=== PATIENT | male | born 1975 | race Caucasian/White ===

== ENCOUNTER 2021-04-13 09:30 | Emergency (ER) | payer OTHER ==
[~2021-04-13] VITALS: Ht 182.9 cm; Wt 136.1 kg
[2021-04-13 09:51] VITALS: BP 131/86
[2021-04-13 10:32] LABS: EOSINOPHILS % (AUTO) 1.3 % (0.0-8.0); HEMATOCRIT 37.7 % (42-54); LYMPHOCYTES % (AUTO) 19.8 % (21.0-51.0); MEAN CORPUSCULAR HEMOGLOBIN 29.7 pg (27.0-33.0); MEAN CORPUSCULAR HGB CONC 34.2 g/dL (32.0-36.0); MEAN CORPUSCULAR VOLUME 86.7 fL (79-99); MONOCYTES % (AUTO) 5.5 % (3.0-13.0); PLATELET COUNT (AUTO) 238 K/uL (130-400); RED BLOOD CELL COUNT(AUTO) 4.35 MIL/uL (4.50-6.20); RED CELL DISTRIBUTION WIDTH 12.1 % (11.0-15.5); WHITE BLOOD COUNT (AUTO) 8.2 K/uL (4.8-10.8)
[2021-04-13] MEDS ORDERED: ONDANSETRON 4MG INJ IVP STA (10:36)
[2021-04-13] MEDS ORDERED: MORPHINE 4 MG SYG IV STA (10:36)
[2021-04-13 10:39] LABS: APPEARANCE,URINE Clear (CLEAR); BILIRUBIN,URINE Negative (NEGATIVE); COLOR,URINE Yellow (YELLOW); GLUCOSE, URINE (UA) >=1000 mg/dL (NEGATIVE); KETONES,URINE Negative (NEGATIVE); LEUKOCYTE ESTERASE ,URINE Negative (NEGATIVE); NITRATE,URINE Negative (NEGATIVE); OCCULT BLOOD,URINE Negative (NEGATIVE); PH,URINE 5.5 (5.0-8.0); PROTEIN,URINE Negative (NEGATIVE); UROBILINOGEN,URINE 0.2 mg/dL (0.2-1.0)
[2021-04-13 10:45] LABS: INR 0.94 (0.85-1.15); PROTHROMBIN TIME 10.3 SEC (9.6-11.6)
[2021-04-13] MEDS ORDERED: ONDANSETRON 4MG INJ ONE (10:45)
[2021-04-13 10:46] LABS: CREATININE 0.9 mg/dL (0.5-1.5); PARTIAL THROMBOPLASTIN TIME 24.6 SEC (26.3-35.5); POTASSIUM 3.9 mmol/L (3.5-5.1)
[2021-04-13] MEDS ORDERED: MORPHINE 4 MG SYG ONE (10:46)
[2021-04-13 10:50] LABS: ALBUMIN 3.8 g/dL (3.5-5.0); BILIRUBIN,TOTAL 0.6 mg/dL (0.2-1.0); TOTAL PROTEIN, SERUM 7.2 g/dL (6.0-8.3)
[2021-04-13] MEDS ORDERED: PRED20TA3 PO (10:55)
[2021-04-13] MEDS ORDERED: ACET1TAB25 PO (10:55)
[2021-04-13 11:01] LABS: BACTERIA,URINE Rare /HPF (None Seen); RBC,URINE None Seen /HPF (0-1); SQUAMOUS EPITHELIAL CELL,UR Rare /HPF (0-2); WBC,URINE None Seen /HPF (0-1)
[2021-04-13 11:02] LABS: B-TYPE NATRIURETIC PEPTIDE 9 pg/mL (0-100)
[2021-04-13 11:13] VITALS: BP 154/83
== END 2021-04-13 11:45 | disposition home or self-care (01) ==
LOC: EEVIPCON 09:30 → EDH 09:30
DX: G51.0 Bell's palsy (principal); I10 Essential (primary) hypertension; E11.9 Type 2 diabetes mellitus without complications; Z79.899 Other long term (current) drug therapy
CPT/HCPCS: 36415; 70450; 71045; 80053; 81001; 82550; 83880; 84484; 85025; 85610; 85730; 96374; 96375; 99285; J2270; J2405

== ENCOUNTER → 2023-07-19 | Emergency (ER) | payer BC, OTHER ==
[~2023-07-19] VITALS: Ht 182.9 cm; Wt 136.1 kg
[~2023-07-19] MED LIST: ACET-2079 PO; DEXAMETHASONE SOD PHOSPHATE 4 MG/ML 1ML VIAL IM ONE; DEXAMETHASONE SOD PHOSPHATE 4 MG/ML 1ML VIAL ONE; DIAZEPAM 5 MG TABLET PO ONE; HYDROCODONE/ACETAMINOPHEN 10/325 MG TAB PO ONE; KETOROLAC 60 MG VIAL (30MG/ML) IM ONE; METH-811 PO; PRED20TA3 PO; TIZANIDINE HCL 2 MG TABLET PO SCH
[2023-07-19 09:56] LABS: APPEARANCE,URINE CLEAR (CLEAR); BILIRUBIN,URINE NEGATIVE (NEGATIVE); GLUCOSE, URINE (UA) >=1000 mg/dL (NEGATIVE); KETONES,URINE NEGATIVE (NEGATIVE); LEUKOCYTE ESTERASE ,URINE NEGATIVE Leu/uL (NEGATIVE); NITRATE,URINE NEGATIVE (NEGATIVE); OCCULT BLOOD,URINE NEGATIVE (NEGATIVE); PROTEIN,URINE NEGATIVE (NEGATIVE); UROBILINOGEN,URINE 0.2 mg/dL (0.2-1.0)
[2023-07-19 09:59] LABS: ADD UA MICROSCOPIC YES; COLOR,URINE STRAW (YELLOW)
[2023-07-19 13:32] LABS: AMPHET/METH SCREEN,URINE NEGATIVE (NEGATIVE); BARBITURATE SCREEN, URINE NEGATIVE (NEGATIVE); BENZODIAZEPINES SCREEN,URINE NEGATIVE (NEGATIVE); CANNABINOID SCREEN,URINE POSITIVE (NEGATIVE); COCAINE SCREEN,URINE NEGATIVE (NEGATIVE); OPIATE SCREEN,URINE NEGATIVE (NEGATIVE); PHENCYCLIDINE SCREEN,URINE NEGATIVE (NEGATIVE)
[2023-07-19 14:03] VITALS: BP 130/74; PULSE 90; RESP 16; O2SAT 97
== END ==
LOC: EDH 09:19
DX: S29.012A Strain of muscle and tendon of back wall of thorax, initial encounter (principal); S46.911A Strain of unspecified muscle, fascia and tendon at shoulder and upper arm level, right arm, initial encounter; X58.XXXA Exposure to other specified factors, initial encounter; Y93.89 Activity, other specified; Y92.89 Other specified places as the place of occurrence of the external cause; Y99.8 Other external cause status; E11.9 Type 2 diabetes mellitus without complications; I10 Essential (primary) hypertension; Z79.52 Long term (current) use of systemic steroids
CPT/HCPCS: 99284; 80305; 81001; 72070; 96372 ×2; 93005; J1100; J1885